=== PATIENT | female | born 1985 | race American Indian/Alaskan Native ===

== ENCOUNTER 2017-03-09 03:34 | Emergency (ER) | payer MEDICARE ==
[2017-03-09] MEDS ORDERED: NACL 0.9% 1000 ML IV ONE (06:17)
[2017-03-09] MEDS ORDERED: TYLENOL PO ONE (06:17)
[2017-03-09] MEDS ORDERED: DECADRON IV ONE (06:17)
--- NOTE | 2017-03-09 06:18 | Emergency Department Report ---
ED General Adult HPI - General Chief complaint: Sore Throat Stated complaint: FEVER/SWELLING IN NECK Time Seen by Provider: 03/09/17 06:08 Source: patient, EMS (ems notes not available at time of chart dictation), RN notes reviewed Mode of arrival: Ambulatory Limitations: No Limitations, Other - History of Present Illness Initial comments: This is a 32-year-old female. She is previously unknown to me. Primary care Dr.: Dr. Hodges Rheumatology: Dr. Lowe Past medical history: Congenital uveitis at , blind, visual disability, rheumatoid arthritis, currently on methotrexate and Humira The patient presents to the ER with fever and right-sided neck swelling. She reports the neck swelling has doubled in size within the past 36 hours. Positive fever at home. No stridor or dysphonia. No headache or chest pain. No shortness of breath. No abdominal pain. Patient reports a complex sinus surgery at the age of 14, she reports hives with exposure to meropenem and penicillin, but she is not sure which of these medications cause her hives. The patient's symptoms are constant. They're getting worse. They have no exacerbating or relieving factors. -: Gradual Location: neck Severity scale (0 -10): 6 Consistency: constant Improves with: none Worsens with: none Associated Symptoms: fever/chills. denies: confusion, chest pain, cough, diaphoresis, headaches, loss of appetite, malaise, nausea/vomiting, shortness of breath, syncope, weakness - Related Data Home Medications Medication Instructions Recorded Confirmed Last Taken Adalimumab [Humira] 40 mg SQ Q14D 03/09/17 03/09/17 Unknown Cetirizine HCl [ZyrTEC] 10 mg PO DAILY 03/09/17 03/09/17 Unknown Folic Acid [Folvite] 1 mg PO QDAY 03/09/17 03/09/17 Unknown Methotrexate(Dose Weekly Only) 6 tab PO QWEEK 03/09/17 03/09/17 02/23/17 Allergies Allergy/AdvReac Type Severity Reaction Status Date / Time aspirin AdvReac Shortness Verified 03/09/17 05:25 of Breath meropenem AdvReac Rash Verified 03/09/17 05:27 Penicillins AdvReac Rash Verified 03/09/17 05:27 ED Review of Systems ROS: Stated complaint: FEVER/SWELLING IN NECK Other details as noted in HPI Constitutional: see HPI, fever Eyes: as per HPI ENT: as per HPI, throat pain Respiratory: see HPI Cardiovascular: as per HPI Endocrine: see HPI Gastrointestinal: as per HPI Genitourinary: as per HPI Musculoskeletal: as per HPI Skin: as per HPI Neurological: as per HPI Psychiatric: as per HPI Hematological/Lymphatic: as per HPI ED Past Medical Hx - Past Medical History Previous Medical History?: Yes Hx Arthritis: Yes (rhuematoid arthritis takes Humira) Additional medical history: legally blind - Social History Smoking Status: Never Smoker - Medications Home Medications: Home Medications Medication Instructions Recorded Confirmed Last Taken Type Adalimumab [Humira] 40 mg SQ Q14D 03/09/17 03/09/17 Unknown History Cetirizine HCl [ZyrTEC] 10 mg PO DAILY 03/09/17 03/09/17 Unknown History Folic Acid [Folvite] 1 mg PO QDAY 03/09/17 03/09/17 Unknown History Methotrexate(Dose Weekly Only) 6 tab PO QWEEK 03/09/17 03/09/17 02/23/17 History ED Physical Exam - General Limitations: No Limitations General appearance: alert, in no apparent distress - Head Head exam: Present: atraumatic, normocephalic - Eye Eye exam: Present: normal appearance, EOMI, other (the patient has a chronic right-sided exotropia strabismus. However, she does have full range of motion in the bilateral eyes. The patient reports that the right-sided strabismus has been present for years, and is not new, worsening or different). Absent: nystagmus - ENT ENT exam: Present: normal exam, normal orophraynx, mucous membranes moist, normal external ear exam - Neck Neck exam: Present: full ROM, lymphadenopathy, other (there is a large right sided well-circumscribed lesion, approximately 5 x 5 cm. The patient is speaking in full sentences, there is no stridor or dysphonia. The right-sided lesion is tender to palpation. There is no pain on the trachea with lateral manipulation or palpation.) - Respiratory Respiratory exam: Present: normal lung sounds bilaterally. Absent: respiratory distress, wheezes, rales, rhonchi, chest wall tenderness, accessory muscle use, decreased breath sounds - Cardiovascular Cardiovascular Exam: Present: normal rhythm, tachycardia, normal heart sounds. Absent: systolic murmur, diastolic murmur, rubs, gallop - GI/Abdominal GI/Abdominal exam: Present: soft, normal bowel sounds. Absent: distended, tenderness, guarding, rebound, rigid, pulsatile mass - Extremities Exam Extremities exam: Present: normal inspection, full ROM, normal capillary refill. Absent: pedal edema, joint swelling, calf tenderness - Back Exam Back exam: Present: normal inspection, full ROM. Absent: tenderness, CVA tenderness (R), CVA tenderness (L), muscle spasm, paraspinal tenderness, vertebral tenderness - Neurological Exam Neurological exam: Present: alert, oriented X3, normal gait, other (Extraocular movements intact. Tongue midline. No facial droop. Facial sensation intact to light touch in the V1, V2, V3 distribution bilaterally. 5 and 5 strength in 4 extremities.. Sensation is intact to light touch in 4 extremities.). Absent : motor sensory deficit - Psychiatric Psychiatric exam: Present: normal affect, normal mood - Skin Skin exam: Present: warm, dry, intact, normal color. Absent: rash ED Course Vital Signs 03/09/17 03/09/17 03/09/17 05:31 06:10 07:15 Temperature 103.1 F H 102.9 F H Pulse Rate 124 H 113 H Respiratory 20 18 Rate Blood Pressure 119/91 Blood Pressure 115/73 [Left] O2 Sat by Pulse 98 99 97 Oximetry 03/09/17 03/09/17 03/09/17 07:21 07:31 07:41 Temperature Pulse Rate 112 H 110 H 106 H Respiratory 21 15 32 H Rate Blood Pressure 123/82 123/82 123/82 Blood Pressure [Left] O2 Sat by Pulse 98 96 96 Oximetry 03/09/17 03/09/17 03/09/17 07:51 07:58 08:15 Temperature 98.6 F Pulse Rate 107 H 101 H Respiratory 16 Rate Blood Pressure 123/82 123/82 Blood Pressure [Left] O2 Sat by Pulse 97 99 Oximetry 03/09/17 03/09/17 03/09/17 08:21 08:31 08:41 Temperature Pulse Rate 98 H 101 H 101 H Respiratory 12 18 25 H Rate Blood Pressure 123/82 123/82 123/82 Blood Pressure [Left] O2 Sat by Pulse 99 96 98 Oximetry 03/09/17 03/09/17 03/09/17 08:51 09:00 09:11 Temperature Pulse Rate 93 H 97 H 94 H Respiratory 25 H 14 22 Rate Blood Pressure 114/77 106/77 123/82 Blood Pressure [Left] O2 Sat by Pulse 98 97 97 Oximetry 03/09/17 03/09/17 09:21 12:01 Temperature 98.6 F Pulse Rate 94 H 88 Respiratory 16 18 Rate Blood Pressure 123/82 Blood Pressure 132/82 [Left] O2 Sat by Pulse 97 100 Oximetry - Reevaluation(s) Reevaluation #1: 03/09/17 07:22 differential diagnosis: Abscess, lymphadenopathy, phlegmasia, sepsis, immune compromised Assessment and plan: 32-year-old female with systemic inflammatory response syndrome, immune compromised on multiple immune modulating and suppressing medications. She is febrile and tachycardic, with no stridor or dysphonia and she is protecting her airway at this time. She thinks she is not but is not certain. She reports she is able to tolerate ibuprofen and Motrin. Patient will be aggressively fluid resuscitated with 30 mL/kg of IV fluid, Decadron empirically ordered, Tylenol ordered, laboratory studies pending. Patient will require CT scan of the neck with IV contrast. Patient will most likely require transfer to a facility that has otolaryngology consultation available. CT scan is pending at this time. Antibiotic selection will be made pending her test. Reevaluation #2: 03/09/17 09:23 ct shows necrotizing lymphadenitis. antibiotics ordered this hospital doesnt have ent d/w [facility] Reevaluation #3: 03/09/17 10:14 Case is discussed with otolaryngology, Dr. Velasquez, who accepts the patient as an ER to ER transfer to the [facility]. Given that patient is immune compromised with a neck abscess that is necrotizing , meeting sepsis criteria, the patient will benefit from transfer to a facility that can provide definitive care, as this hospital does not have otolaryngology available for consultation. Dr Mcgill of ER accepts as well 03/09/17 10:15 03/09/17 10:23 ED Medical Decision Making - Lab Data Result diagrams: 03/09/17 06:58 03/09/17 06:58 Vital Signs 03/09/17 03/09/17 05:31 06:10 Temperature 103.1 F H 102.9 F H Pulse Rate 124 H 113 H Respiratory 20 18 Rate Blood Pressure 119/91 Blood Pressure 115/73 [Left] O2 Sat by Pulse 98 99 Oximetry - Radiology Data Radiology results: pending Critical care attestation.: If time is entered above; I have spent that time in minutes in the direct care of this critically ill patient, excluding procedure time. ED Disposition Clinical Impression: Sepsis, Neck abscess Disposition: DC/TX- [facility] IP Is pt being admited?: No Does the pt Need Aspirin: No Condition: Stable Referrals: PRIMARY CARE, [Primary Care Provider] - 3-5 Days
[2017-03-09] MEDS ORDERED: NACL ONE (06:42)
[2017-03-09 07:25] LABS: Hematocrit 41.5 % (30.3-42.9); Hemoglobin 13.8 gm/dl (10.1-14.3); Mean Corpuscular HGB Conc 33 % (30-34); Mean Corpuscular Hemoglobin 30 pg (28-32); Mean Corpuscular Volume 92 fl (79-97); Platelet Count 305 K/mm3 (140-440); Red Blood Count 4.54 M/mm3 (3.65-5.03); Red Cell Distribution Width 13.2 % (13.2-15.2)
[2017-03-09 07:27] LABS: White Blood Count 21.5 K/mm3 (4.5-11.0)
[2017-03-09 07:49] LABS: Bacteria,Urine 4+ /HPF (Negative); Bilirubin,Urine NEG (Negative); Blood,Urine MOD (Negative); Ketones,Urine 80 mg/dL (Negative); Leukocyte Esterase,Urine TR (Negative); Mucus,Urine 3+ /HPF; Nitrite,Urine POS (Negative); Urobilinogen,Urine < 2.0 mg/dL (<2.0)
[2017-03-09 07:56] LABS: Alanine Aminotransferase 15 units/L (7-56); Albumin 3.7 g/dL (3.9-5); Albumin/Globulin Ratio 0.9 %; Alkaline Phosphatase 75 units/L (35-129); Anion Gap 20 mmol/L; Blood Urea Nitrogen 5 mg/dL (7-17); Calcium 9.1 mg/dL (8.4-10.2); Carbon Dioxide 22 mmol/L (22-30); Chloride 99.8 mmol/L (98-107); Glucose 121 mg/dL (65-100); Potassium 3.6 mmol/L (3.6-5.0); Sodium 138 mmol/L (137-145)
--- NOTE | 2017-03-09 08:15 | XRay Report ---
AP CHEST :03/09/17 08:11 CLINICAL: Fever/sepsis COMPARISON:None. FINDINGS: Normal heart and pulmonary vasculature. The lungs are normally expanded and clear. The bones and soft tissues are normal. IMPRESSION: Normal chest.
[2017-03-09] MEDS ORDERED: CLEOCIN 600 MG/50 mL 600 MG/50 ML BAG IV ONE (09:21)
--- NOTE | 2017-03-09 09:43 | Cat Scan Report ---
CT NECK WITH CONTRAST INDICATION: Neck swelling. COMPARISON: None similar. FINDINGS: Neck CT performed following IV contrast. Axial, sagittal and coronal reconstructed images demonstrate prominent/enlarged adenoids, right more than left. Preserved parapharyngeal fat-pad however. Mild nasopharyngeal airway narrowing/effacement as on axial series 2, images 65-90. Normal hypopharynx and larynx. Normal thyroid. Clear imaged lung apices. Normal imaged aortic arch and major arising arteries. Patent jugular veins, though right jugular vein superiorly in the neck extending to the skull base effaced as on axial images 60-115 by significant adjacent lymphadenopathy, possibly partly necrotic/an abscess that measures approximately 1.9 cm as on axial image 90, series 2. Single largest solid enhancing level 2/jugular chain lymph node component is approximately 2.5 x 2 cm, axial image 101 and 2.3 cm craniocaudal. Surrounding inflammatory stranding/fluid also noted. Additional multistation lymphadenopathy also noted as approximately 1.2 cm submental, axial image 112, series 2. A level 2/jugular chain lymph node on the left measures up to 1.5 x 1.4 cm, axial image 90 and approximately 3 cm craniocaudal. Right submandibular gland slightly more prominent than the left. Left submandibular gland duct though noted prominent/more dilated than the right measuring up to 4 mm caliber, axial image 87, series 2. No radiopaque calculus definitively identified. Leftward nasal septal bowing. Clear imaged paranasal sinuses and mastoid air cells. Radiopaque mandibular dental filling. Symmetric eye globes, though with possible bilateral cataract surgery or lens calcifications, unusual for a patient of this age. CONCLUSION: 1. Cervical lymphadenopathy noted throughout, greatest on the right, possibly partly necrotic and approximately 2 cm abscess with surrounding inflammatory stranding/fluid and effacement of subjacent coursing right jugular vein, as detailed above. Underlying etiology though uncertain and may be infectious/inflammatory versus neoplastic. 2. Various other findings, including prominent tonsils, mildly prominent/dilated left submandibular duct without radiopaque calculus identified, leftward nasal septal deviation and bilateral eye globe appearance, as detailed above. I phoned the above results to Dr. Harmon in the ER, 9:00 AM, 03/09/2017. Thank you for the opportunity to participate in this patient's care.
[2017-03-09] MEDS ORDERED: FLAGYL 500 MG/100 ML 500 MG/100 ML BAG IV SCH (10:00)
[2017-03-09 12:03] VITALS: BP 132/82
== END 2017-03-09 12:01 | disposition short-term general hospital (02) ==
LOC: ED 03:34
DX: A41.9 Sepsis, unspecified organism (principal); L02.11 Cutaneous abscess of neck; M06.9 Rheumatoid arthritis, unspecified; Z88.0 Allergy status to penicillin; Z88.8 Allergy status to other drugs, medicaments and biological substances; Z88.6 Allergy status to analgesic agent
CPT/HCPCS: 36415; 70491; 71010; 80053; 81001; 81025; 82140; 84702; 85027; 87040; 96361; 96365; 99285; J1100; J7030; Q9967

== ENCOUNTER 2017-09-23 23:22 | Emergency (ER) | payer MEDICARE ==
[2017-09-24] MEDS ORDERED: MOTRIN PO ONE (00:41)
[2017-09-24 01:20] LABS: Basophils % (Auto) 0.3 % (0.0-1.8); Eosinophils # (Auto) 0.1 K/mm3 (0.0-0.4); Hematocrit 41.5 % (30.3-42.9); Hemoglobin 13.5 gm/dl (10.1-14.3); Lymphocytes # (Auto) 0.4 K/mm3 (1.2-5.4); Lymphocytes % (Auto) 3.5 % (13.4-35.0); Mean Corpuscular HGB Conc 33 % (30-34); Mean Corpuscular Hemoglobin 31 pg (28-32); Mean Corpuscular Volume 94 fl (79-97); Monocytes % (Auto) 10.1 % (0.0-7.3); Platelet Count 294 K/mm3 (140-440); Red Blood Count 4.41 M/mm3 (3.65-5.03); Red Cell Distribution Width 12.6 % (13.2-15.2)
[2017-09-24 01:46] LABS: Alanine Aminotransferase 11 units/L (7-56); BUN/Creatinine Ratio 10; Blood Urea Nitrogen 5 mg/dL (7-17); Calcium 8.3 mg/dL (8.4-10.2); Hemolysis Index 44
[2017-09-24 02:29] LABS: Bacteria,Urine 1+ /HPF (Negative); Bilirubin,Urine NEG (Negative); Blood,Urine MOD (Negative); Color,Urine Yellow (Yellow); Hyaline Casts,Urine 61 /LPF; Mucus,Urine 3+ /HPF; Nitrite,Urine NEG (Negative); Urobilinogen,Urine < 2.0 mg/dL (<2.0)
[2017-09-24] MEDS ORDERED: ZOFRAN IV ONE (03:32)
[2017-09-24] MEDS ORDERED: ULTRAM PO ONE (03:32)
[2017-09-24] MEDS ORDERED: NACL 0.9% 1000 ML 1,000 ML IV ONE ×2 (03:32→06:04)
[2017-09-24] MEDS ORDERED: BENADRYL IV ONE (04:11)
[2017-09-24] MEDS ORDERED: ATROVENT IH ONE (04:12)
[2017-09-24] MEDS ORDERED: XOPENEX IH ONE (04:12)
--- NOTE | 2017-09-24 05:28 | XRay Report ---
FINAL REPORT PROCEDURE: XR CHEST 1V AP TECHNIQUE: Chest radiograph anteroposterior view. CPT 95030 HISTORY: sob COMPARISON: No prior studies are available for comparison. FINDINGS: Heart: Normal. Mediastinum/Vessels: Normal. Lungs/Pleural space: Lungs are clear and expanded. There are no infiltrates, effusions or pneumothoraces.. Bony thorax: No acute osseous abnormality. Life support devices: None. IMPRESSION: No acute cardiopulmonary abnormality.
[2017-09-24] MEDS ORDERED: K-DUR PO ONE (06:05)
--- NOTE | 2017-09-24 06:38 | Emergency Department Report ---
ED Fever HPI - General Chief Complaint: Abdominal Pain Stated Complaint: ABDOMINAL PAIN Time Seen by Provider: 09/24/17 03:21 Source: patient Exam Limitations: no limitations - History of Present Illness Initial Comments: 32-year-old female past medical history of rheumatoid arthritis and legally blind presents to the hospital with complaints of nausea, vomiting, diarrhea, sore throat, chills, and headache. Started Thursday prior to arrival. Patient apparently is a generalized cramping with several episodes of diarrhea. Patient had one episode of vomiting after eminence ride and around to the hospital. Patient did not receive a flu shot. Patient is also Humira for rheumatoid arthritis. No sick contacts reported. Patient has occasional shortness of breath and chest tightness with a past history of asthma. ED Review of Systems ROS: Stated complaint: ABDOMINAL PAIN Other details as noted in HPI Comment: All other systems reviewed and negative Other: Constitutional: Positive fever Eyes: Legally blind ENT: No ear pain or throat pain Neck: Denies pain Respiratory: Denies cough Cardiovascular: Denies chest pain GI: as per hpi : Denies dysuria Musculoskeletal: Denies back pain Skin: Denies rash, lesions, erythema Neurologic: Denies numbness, weakness. bi temporal headache Psychiatric: Denies suicidal ideation, hallucinations ED Past Medical Hx - Past Medical History Previous Medical History?: Yes Hx Arthritis: Yes (rhuematoid arthritis takes Humira) Additional medical history: legally blind - Surgical History Past Surgical History?: Yes Additional Surgical History: cranial surgery, left ankle - Social History Smoking Status: Never Smoker Substance Use Type: None - Medications Home Medications: Home Medications Medication Instructions Recorded Confirmed Last Taken Type Adalimumab [Humira] 40 mg SQ Q14D 03/09/17 03/09/17 Unknown History Cetirizine HCl [ZyrTEC] 10 mg PO DAILY 03/09/17 03/09/17 Unknown History Folic Acid [Folvite] 1 mg PO QDAY 03/09/17 03/09/17 Unknown History Methotrexate(Dose Weekly Only) 6 tab PO QWEEK 03/09/17 03/09/17 02/23/17 History ALBUTEROL Inhaler [ProAir HFA 2 puff IH QID PRN #1 inhalation 09/24/17 Unknown Rx Inhaler] Ciprofloxacin HCl [Cipro] 500 mg PO BID #14 tablet 09/24/17 Unknown Rx Ibuprofen [Motrin] 800 mg PO Q8HR PRN #30 tablet 09/24/17 Unknown Rx Promethazine [Phenergan TAB] 25 mg PO Q6HR PRN #20 tab 09/24/17 Unknown Rx ED Physical Exam - General Limitations: No Limitations - Other Other exam information: General: No limitations, patient is alert in no acute distress Head exam: Atraumatic, normocephalic Eyes exam: Normal appearance ENT: Moist mucous membrane, normal oropharynx no exudates Neck exam: Normal inspection, full range of motion, no meningismus nontender Respiratory exam: Clear to auscultation bilateral, no wheezes, rales, crackles Cardiovascular: Mild tachycardia that increases when sitting up in the bed Abdomen: Soft, nondistended, and nontender, with normal bowel sounds, no rebound, or guarding Extremity: Full range of motion normal inspection no deformity Back: Normal Inspection, full range of motion, no tenderness Neurologic: Alert, oriented x3, cranial nerves intact, no motor or sensory deficit Psychiatric: normal affect, normal mood Skin: Warm, dry, intact ED Course Vital Signs 09/24/17 09/24/17 09/24/17 00:35 01:28 01:30 Temperature 101.4 F H Pulse Rate 117 H 110 H 104 H Pulse Rate [ Anterior Bilateral Throughout] Respiratory 17 21 Rate Respiratory Rate [Anterior Bilateral Throughout] Blood Pressure 97/64 101/64 Blood Pressure [Left] O2 Sat by Pulse 99 99 99 Oximetry 09/24/17 09/24/17 09/24/17 01:45 02:00 02:15 Temperature Pulse Rate 96 H 106 H 93 H Pulse Rate [ Anterior Bilateral Throughout] Respiratory 16 9 L 13 Rate Respiratory Rate [Anterior Bilateral Throughout] Blood Pressure 99/70 99/70 95/60 Blood Pressure [Left] O2 Sat by Pulse 99 98 97 Oximetry 09/24/17 09/24/17 09/24/17 02:30 02:45 03:00 Temperature Pulse Rate 98 H 109 H 95 H Pulse Rate [ Anterior Bilateral Throughout] Respiratory 15 15 17 Rate Respiratory Rate [Anterior Bilateral Throughout] Blood Pressure 99/59 96/63 95/57 Blood Pressure [Left] O2 Sat by Pulse 98 97 98 Oximetry 09/24/17 09/24/17 09/24/17 03:15 03:30 03:45 Temperature Pulse Rate 99 H 95 H 98 H Pulse Rate [ Anterior Bilateral Throughout] Respiratory 17 18 18 Rate Respiratory Rate [Anterior Bilateral Throughout] Blood Pressure 94/58 98/59 83/43 Blood Pressure [Left] O2 Sat by Pulse 97 97 96 Oximetry 09/24/17 09/24/17 09/24/17 04:04 04:15 04:29 Temperature Pulse Rate 117 H 101 H Pulse Rate [ 105 H Anterior Bilateral Throughout] Respiratory 30 H 14 Rate Respiratory 22 Rate [Anterior Bilateral Throughout] Blood Pressure 99/64 97/61 Blood Pressure [Left] O2 Sat by Pulse 98 99 Oximetry 09/24/17 09/24/17 09/24/17 04:30 04:45 04:49 Temperature Pulse Rate 95 H 108 H Pulse Rate [ 111 H Anterior Bilateral Throughout] Respiratory 15 14 Rate Respiratory 18 Rate [Anterior Bilateral Throughout] Blood Pressure 109/68 104/72 Blood Pressure [Left] O2 Sat by Pulse 98 97 Oximetry 09/24/17 09/24/17 09/24/17 05:01 05:15 05:30 Temperature Pulse Rate 124 H 111 H 107 H Pulse Rate [ Anterior Bilateral Throughout] Respiratory 27 H 17 22 Rate Respiratory Rate [Anterior Bilateral Throughout] Blood Pressure 104/72 100/57 95/57 Blood Pressure [Left] O2 Sat by Pulse 98 100 99 Oximetry 09/24/17 09/24/17 07:30 09:00 Temperature Pulse Rate 97 H 88 Pulse Rate [ Anterior Bilateral Throughout] Respiratory 15 16 Rate Respiratory Rate [Anterior Bilateral Throughout] Blood Pressure Blood Pressure 96/61 103/68 [Left] O2 Sat by Pulse 99 100 Oximetry - Reevaluation(s) Reevaluation #1: 09/24/17 06:35 The patient received tramadol she began to experience shortness with chest tightness which is similar to when she takes aspirin. Patient's saturation normal. Patient received Solu-Medrol, Benadryl, and Xopenex/Atrovent with improvement in symptoms. She has a mild resting tachycardia at this time. ED Medical Decision Making - Lab Data Result diagrams: 09/24/17 00:52 09/24/17 00:52 Lab Results 09/24/17 09/24/17 09/24/17 Range/Units 00:52 00:52 00:52 WBC 10.1 (4.5-11.0) K/mm3 RBC 4.41 (3.65-5.03) M/mm3 Hgb 13.5 (10.1-14.3) gm/dl Hct 41.5 (30.3-42.9) % MCV 94 (79-97) fl MCH 31 (28-32) pg MCHC 33 (30-34) % RDW 12.6 L (13.2-15.2) % Plt Count 294 (140-440) K/mm3 Lymph % (Auto) 3.5 L (13.4-35.0) % [place] % (Auto) 10.1 H (0.0-7.3) % Eos % (Auto) 1.0 (0.0-4.3) % Baso % (Auto) 0.3 (0.0-1.8) % Lymph # 0.4 L (1.2-5.4) K/mm3 [place] # 1.0 H (0.0-0.8) K/mm3 Eos # 0.1 (0.0-0.4) K/mm3 Baso # 0.0 (0.0-0.1) K/mm3 Seg Neutrophils % 85.1 H (40.0-70.0) % Seg Neutrophils # 8.6 H (1.8-7.7) K/mm3 Sodium 136 L (137-145) mmol/L Potassium 3.5 L (3.6-5.0) mmol/L Chloride 100.7 (98-107) mmol/L Carbon Dioxide 19 L (22-30) mmol/L Anion Gap 20 mmol/L BUN 5 L (7-17) mg/dL Creatinine 0.5 L (0.7-1.2) mg/dL Estimated GFR > 60 ml/min BUN/Creatinine Ratio 10 % Glucose 97 (65-100) mg/dL Calcium 8.3 L (8.4-10.2) mg/dL Total Bilirubin 0.70 (0.1-1.2) mg/dL AST 17 (5-40) units/L ALT 11 (7-56) units/L Alkaline Phosphatase 49 (35-129) units/L Total Protein 7.2 (6.3-8.2) g/dL Albumin 4.0 (3.9-5) g/dL Albumin/Globulin Ratio 1.3 % HCG, Qual Negative (Negative) Urine Color (Yellow) Urine Turbidity (Clear) Urine pH (5.0-7.0) Ur Specific [place] (1.003-1.030) Urine Protein (Negative) mg/dL Urine Glucose (UA) (Negative) mg/dL Urine Ketones (Negative) mg/dL Urine Blood (Negative) Urine Nitrite (Negative) Urine Bilirubin (Negative) Urine Urobilinogen (<2.0) mg/dL Ur Leukocyte Esterase (Negative) Urine WBC (Auto) (0.0-6.0) /HPF Urine RBC (Auto) (0.0-6.0) /HPF U Epithel Cells (Auto) (0-13.0) /HPF Urine Bacteria (Auto) (Negative) /HPF Hyaline Casts /LPF Urine Mucus /HPF Influenza A (Rapid) (Negative) Influenza B (Rapid) (Negative) 09/24/17 09/24/17 Range/Units 01:44 Unknown WBC (4.5-11.0) K/mm3 RBC (3.65-5.03) M/mm3 Hgb (10.1-14.3) gm/dl Hct (30.3-42.9) % MCV (79-97) fl MCH (28-32) pg MCHC (30-34) % RDW (13.2-15.2) % Plt Count (140-440) K/mm3 Lymph % (Auto) (13.4-35.0) % [place] % (Auto) (0.0-7.3) % Eos % (Auto) (0.0-4.3) % Baso % (Auto) (0.0-1.8) % Lymph # (1.2-5.4) K/mm3 [place] # (0.0-0.8) K/mm3 Eos # (0.0-0.4) K/mm3 Baso # (0.0-0.1) K/mm3 Seg Neutrophils % (40.0-70.0) % Seg Neutrophils # (1.8-7.7) K/mm3 Sodium (137-145) mmol/L Potassium (3.6-5.0) mmol/L Chloride (98-107) mmol/L Carbon Dioxide (22-30) mmol/L Anion Gap mmol/L BUN (7-17) mg/dL Creatinine (0.7-1.2) mg/dL Estimated GFR ml/min BUN/Creatinine Ratio % Glucose (65-100) mg/dL Calcium (8.4-10.2) mg/dL Total Bilirubin (0.1-1.2) mg/dL AST (5-40) units/L ALT (7-56) units/L Alkaline Phosphatase (35-129) units/L Total Protein (6.3-8.2) g/dL Albumin (3.9-5) g/dL Albumin/Globulin Ratio % HCG, Qual (Negative) Urine Color Yellow (Yellow) Urine Turbidity Clear (Clear) Urine pH 5.0 (5.0-7.0) Ur Specific [place] 1.025 (1.003-1.030) Urine Protein 30 mg/dl (Negative) mg/dL Urine Glucose (UA) Neg (Negative) mg/dL Urine Ketones Tr (Negative) mg/dL Urine Blood Mod (Negative) Urine Nitrite Neg (Negative) Urine Bilirubin Neg (Negative) Urine Urobilinogen < 2.0 (<2.0) mg/dL Ur Leukocyte Esterase Mod (Negative) Urine WBC (Auto) 32.0 H (0.0-6.0) /HPF Urine RBC (Auto) 2.0 (0.0-6.0) /HPF U Epithel Cells (Auto) 19.0 H (0-13.0) /HPF Urine Bacteria (Auto) 1+ (Negative) /HPF Hyaline Casts 61 /LPF Urine Mucus 3+ /HPF Influenza A (Rapid) Negative (Negative) Influenza B (Rapid) Negative (Negative) - Radiology Data Radiology results: report reviewed (chest x-ray: No acute findings) - Medical Decision Making I suspect the patient urine is contaminated given high number of epithelial cells and lack of urinary symptoms. However she will be covered with antibiotics. Patient's chest tightness after tramadol improved with inhaler, Solu-Medrol, and Benadryl. Patient's tachycardia increase after nebs. Additional IV fluids ordered and patient will be observed for improvement in tachycardia prior to discharge. I suspect the patient has a viral syndrome Patient signed out to Dr. francis to follow-up for resolution of tachycardia after third liter normal saline flu neg - Differential Diagnosis sepsis, UTI, viral syndrome, pneumonia, gastric enteritis, appendicitis Critical Care Time: No Critical care attestation.: If time is entered above; I have spent that time in minutes in the direct care of this critically ill patient, excluding procedure time. ED Disposition Clinical Impression: Viral syndrome, Urine leukocytes increased Disposition: DC-01 TO HOME OR SELFCARE Is pt being admited?: No Condition: Stable Instructions: Urinary Tract Infection in Women (ED), Viral Syndrome (ED) Additional Instructions: Take the medication as prescribed. Follow-up with your doctor. Return if symptoms worsen. Prescriptions: ALBUTEROL Inhaler [ProAir HFA Inhaler] 2 puff IH QID PRN #1 inhalation PRN Reason: Shortness Of Breath Ciprofloxacin HCl [Cipro] 500 mg PO BID #14 tablet Ibuprofen [Motrin] 800 mg PO Q8HR PRN #30 tablet PRN Reason: Pain Promethazine [Phenergan TAB] 25 mg PO Q6HR PRN #20 tab PRN Reason: Nausea Referrals: PRIMARY CARE, [Referring] - 3-5 Days Time of Disposition: 06:00 (s/o to Dr Francis)
[2017-09-24 10:43] VITALS: BP 103/68
== END 2017-09-24 10:44 | disposition home or self-care (01) ==
LOC: ED 23:22
DX: B34.9 Viral infection, unspecified (principal); M19.90 Unspecified osteoarthritis, unspecified site
CPT/HCPCS: 36415; 71045; 80053; 81001; 84703; 85025; 87400; 93005; 93010; 94640; 96361; 96374; 96375; 99284; J1200; J2405; J2930; J7030